=== PATIENT | male | born 1980 | race Caucasian/White ===

== ENCOUNTER → 2016-07-24 | Outpatient (CLI) | payer OTHER ==
[2014-02-27 21:05] VITALS: BP 106/73
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
== END | disposition home or self-care (01) ==
LOC: KCIC 11:54
PROVIDERS: ATTEND Physician Assistant Medical
DX: M43.8X4 Other specified deforming dorsopathies, thoracic region (principal); V89.2XXA Person injured in unspecified motor-vehicle accident, traffic, initial encounter; M54.5 Low back pain
CPT/HCPCS: 72072; 72110

== ENCOUNTER 2017-02-13 01:08 | Emergency (ER) | payer OTHER ==
[~2017-02-13] VITALS: Ht 180.3 cm; Wt 71.2 kg
--- NOTE | 2017-02-13 01:10 | PHYS DOC ---
Past Medical History Past Medical History: No Pertinent History, Other Additional Past Medical Histor: ADHD Past Surgical History: Other Additional Past Surgical Histo: LEFT ARM REPAIR Alcohol Use: Occasionally Drug Use: None Adult General Chief Complaint Chief Complaint: DENTAL PROBLEM HPI HPI Patient is a 36 year old male who presents with dental pain. He states it started about 30 minutes prior to arrival it's in his left upper jaw and goes up into his left ear. He denies any trouble swallowing or breathing. Denies any fevers chills nausea or vomiting. He denies any troubles hearing. He states it's been a couple years since he seen a dentist spent approximately 2 years ago when he had have a tooth pulled at that time. Review of Systems Review of Systems Constitutional: Denies fever or chills [] Eyes: Denies change in visual acuity, redness, or eye pain [] HENT: Denies nasal congestion or sore throat [] Respiratory: Denies cough or shortness of breath [] Cardiovascular: No additional information not addressed in HPI [] GI: Denies abdominal pain, nausea, vomiting, bloody stools or diarrhea [] : Denies dysuria or hematuria [] Musculoskeletal: Denies back pain or joint pain [] Integument: Denies rash or skin lesions [] Neurologic: Denies headache, focal weakness or sensory changes [] Endocrine: Denies polyuria or polydipsia [] Current Medications Current Medications Current Medications Medications (Trade) Dose Ordered Sig/Kayli Start Time Stop Time Status Last Admin Dose Admin Penicillin V Potassium (Veetid) 500 mg 1X ONCE 02/13/17 02:30 02/13/17 02:31 Allergies Allergies Allergies Coded Allergies Type Severity Reaction Last Updated Verified codeine Allergy Intermediate Hives 12/19/13 No Physical Exam Physical Exam Constitutional: Well developed, well nourished, no acute distress, non-toxic appearance. [] HENT: Normocephalic, atraumatic, bilateral external ears normal, oropharynx moist posterior pharynx clear, no oral exudates, nose normal. Multiple dental caries, tender palpation at the apex of the gum in the left upper jaw around tooth #15, left TM clear, no tenderness to his mastoid, no Baljinder's angina noted. Eyes: PERRLA, EOMI, conjunctiva normal, no discharge. [] Neck: Normal range of motion, no tenderness, supple, no stridor. [] Cardiovascular:Heart rate regular rhythm, no murmur [] Lungs & Thorax: Bilateral breath sounds clear to auscultation [] Abdomen: Bowel sounds normal, soft, no tenderness, no masses, no pulsatile masses. [] Skin: Warm, dry, no erythema, no rash. [] Back: No tenderness, no CVA tenderness. [] Extremities: No tenderness, no cyanosis, no clubbing, ROM intact, no edema. [] Neurologic: Alert and oriented X 3, normal motor function, normal sensory function, no focal deficits noted. [] Psychologic: Affect normal, judgement normal, mood normal. [] Current Patient Data Vital Signs Vital Signs Date Time Temp Pulse Resp B/P (MAP) Pulse Ox O2 Delivery O2 Flow Rate FiO2 02/13/17 01:35 98.4 65 18 97 Room Air 98.4 EKG EKG [] Radiology/Procedures Radiology/Procedures [] Impressions: Dental caries Course & Med Decision Making Course & Med Decision Making Pertinent Labs and Imaging studies reviewed. (See chart for details) Patient does have tenderness in his left upper jaw and dental caries. Appreciate any serious abnormalities occurring with him at this time does not have Baljinder angina, stiff neck, fevers, trouble swallowing changes in voice or other concerning symptoms. We'll treat with Pen-Vee K 5 mg every 6 for the next 7 days. He is instructed follow-up with a dentist. Return precautions given. He is agreeable Plan B discharged in stable condition at this time. Dragon Disclaimer Dragon Disclaimer This electronic medical record was generated, in whole or in part, using a voice recognition dictation system. Departure Departure Impression: Primary Impression: Pain, dental Disposition: 01 HOME, SELF-CARE Condition: STABLE Referrals: CESAR ACUNA MD (PCP) Patient Instructions: Dental Caries Additional Instructions: You were seen tonight for your pain on the left side of her jaw. Your being discharged with antibiotics for the next 7 days. Please follow-up with a dentist. Return ER when necessary troubles breathing, swallowing, you develop high fevers, neck stiffness or you have any other concerns. Scripts Penicillin V Potassium (PENICILLIN V POTASSIUM) 500 Mg Tablet 500 MG PO QID, #28 TAB 0 Refills Prov: CARLITOS MARIEE MD 02/13/17 CARLITOS MARIEE MD Feb 13, 2017 01:10
[2017-02-13 01:35] VITALS: BP 130/75
[2017-02-13] MEDS ORDERED: PENI500T PO (02:07)
[2017-02-13] MEDS ORDERED: PENICILLIN V K 250 MG TABLET. PO ONE (02:30)
== END 2017-02-13 02:16 | disposition home or self-care (01) ==
LOC: ER 01:08
DX: K02.9 Dental caries, unspecified (principal); F90.9 Attention-deficit hyperactivity disorder, unspecified type; Z88.5 Allergy status to narcotic agent
CPT/HCPCS: 99283

== ENCOUNTER → 2017-12-08 | Outpatient (CLI) | payer OTHER | END | disposition home or self-care (01) | LOC: KCIC 11:11 | DX: M54.2 Cervicalgia (principal) | CPT/HCPCS: 72050 ==

== ENCOUNTER 2018-08-02 19:25 | Emergency (ER) | payer OTHER ==
[~2018-08-02] VITALS: Ht 180.3 cm; Wt 69.9 kg
[~2018-08-02 19:25] MED LIST: PENI500T PO
[2018-08-02 19:50] VITALS: BP 145/79
[2018-08-02] MEDS ORDERED: ONDANSETRON ODT 4 MG TAB.RAPDIS. PO ONE (21:00)
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
== END 2018-08-02 21:16 | disposition home or self-care (01) ==
LOC: ER 19:25
DX: S00.83XA Contusion of other part of head, initial encounter (principal); S40.012A Contusion of left shoulder, initial encounter; S40.011A Contusion of right shoulder, initial encounter; S50.02XA Contusion of left elbow, initial encounter; S50.01XA Contusion of right elbow, initial encounter; S80.12XA Contusion of left lower leg, initial encounter; S80.11XA Contusion of right lower leg, initial encounter; R42 Dizziness and giddiness; J45.909 Unspecified asthma, uncomplicated; F90.9 Attention-deficit hyperactivity disorder, unspecified type; F10.129 Alcohol abuse with intoxication, unspecified; Z86.2 Personal history of diseases of the blood and blood-forming organs and certain disorders involving the immune mechanism; Y90.9 Presence of alcohol in blood, level not specified; Y08.89XA Assault by other specified means, initial encounter; Y93.89 Activity, other specified; Y92.89 Other specified places as the place of occurrence of the external cause; Y99.8 Other external cause status
CPT/HCPCS: 70450; 99284-25

== ENCOUNTER → 2019-02-11 | Outpatient (CLI) | payer OTHER ==
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
== END | disposition home or self-care (01) ==
LOC: KCIC 15:26
PROVIDERS: ATTEND Family Medicine
DX: M79.631 Pain in right forearm (principal)
CPT/HCPCS: 73090